=== PATIENT | male | born 1935 | race Caucasian/White ===

== ENCOUNTER → 2017-11-29 | Outpatient (CLI) | payer OTHER ==
[~2017-11-29] MED LIST: ASPI-496 PO; LISI1TAB3 PO; RED600CA2 PO
== END ==
LOC: CVU 13:43
PROVIDERS: ATTEND Family Medicine
DX: I35.8 Other nonrheumatic aortic valve disorders (principal); I10 Essential (primary) hypertension
CPT/HCPCS: 93306